=== PATIENT | female | born 1980 | race Caucasian/White ===

== ENCOUNTER → 2020-12-13 | Outpatient (CLI) | payer MEDICARE ==
[~2020-12-13] MED LIST: IOHEXOL 240 MG/ML 50ML VIAL. ONE; IOHEXOL 300 MG/ML 75 ML VIAL. IV ONE
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
--- NOTE | 2020-12-13 11:07 | RAD ---
INDICATION: Reason: RLQ PAIN. / Spl. Instructions: DRINKING AT 8A. NOT DIABETIC / History: . COMPARISON: None. TECHNIQUE: Axial CT images obtained through the abdomen and pelvis with contrast. One or more of the following individualized dose reduction techniques were utilized for this examinat ion: 1. Automated exposure control; 2. Adjustment of the mA and/or kV according to patient size; 3 . Use of iterative reconstruction technique. FINDINGS: Linear opacity at the right lung base could be from scarring or atelectasis. Prominent epicardial fat. Abdominal aorta is not aneurysmal. Scattered calcific atherosclerosis. Fat-containing anterior abdomi nal wall hernias with some adjacent haziness to the fat. Some of the mesenteric fat and vessels is se en extending into the hernia sac. Fatty atrophy of the musculature most severe at the partially visualized upper legs. There are some enlarged lymph nodes in the bilateral groin measuring up to 13 mm short axis. No intrahepatic bile ducts. Liver is low density which can be seen with fatty infiltration. No peripancreatic fluid collection. Spleen prominent in size. No hydronephrosis. Urinary bladder is partially distended. No periappendiceal inflammatory changes. There are some prominent vessels within the mesentery including adjacent to the right side of the col on. Prominent stool within the transverse colon. Degenerative changes of the hips and spine. Osseous excrescence off of the right acetabulum. Sclerotic appearance of the right iliac wing. IMPRESSION: * No periappendiceal inflammatory changes. No CT evidence of bowel obstruction. * Moderate stool within the transverse colon which appears mildly distended. * Multiple fat-containing anterior abdominal wall hernias with some of the mesenteric vessels extend ing into the hernia sac. There is some haziness to the fat which could be secondary to edema or infla mmatory changes. * Liver is low density which can be seen with fatty infiltration. * Nonspecific mildly enlarged groin lymph nodes. Electronically signed by: Felix Joshua MD (12/13/2020 11:05 AM) [id number]
== END ==
LOC: CT 07:50
PROVIDERS: ATTEND Family Medicine
DX: K46.9 Unspecified abdominal hernia without obstruction or gangrene (principal); R59.9 Enlarged lymph nodes, unspecified; R10.31 Right lower quadrant pain; R51.9 Headache, unspecified
CPT/HCPCS: 70450; 74177; Q9967

== ENCOUNTER 2020-12-14 23:15 | Emergency (ER) | payer MEDICARE ==
[~2020-12-14] VITALS: Ht 175.3 cm; Wt 68.2 kg
[2020-12-14 23:35] VITALS: BP 160/107
--- NOTE | 2020-12-14 23:50 | PHYS DOC ---
Adult General Chief Complaint Chief Complaint: VAGINAL PROBLEM HPI HPI Patient is a 40 year old female who presents with vaginal tear that occurred today. She denies any trauma. She denies use of any foreign body. She states that she noted blood at the superior aspect of the vaginal opening on the right side. She is not any blood thinners. She was concerned as she noted bleeding after wiping following urination. Patient denies any fever, chills, nausea or vomiting. She has not taken any analgesics for this. She came to the ER for evaluation. Review of Systems Review of Systems Constitutional: Denies fever or chills [] Eyes: Denies change in visual acuity, redness, or eye pain [] HENT: Denies nasal congestion or sore throat [] Respiratory: Denies cough or shortness of breath [] Cardiovascular: No additional information not addressed in HPI [] GI: Denies abdominal pain, nausea, vomiting, bloody stools or diarrhea [] : Denies dysuria or hematuria. Reports vaginal tear Musculoskeletal: Denies back pain or joint pain [] Integument: Denies rash or skin lesions [] Neurologic: Denies headache, focal weakness or sensory changes [] Endocrine: Denies polyuria or polydipsia [] All other systems were reviewed and found to be within normal limits, except as documented in this note. Allergies Allergies Allergies Coded Allergies Type Severity Reaction Last Updated Verified Penicillins Allergy Unknown 12/13/20 Yes Physical Exam Physical Exam Constitutional: Well developed, well nourished, no acute distress, non-toxic appearance. [] HENT: Normocephalic, atraumatic, bilateral external ears normal, oropharynx moist, no oral exudates, nose normal. [] Eyes: PERRLA, EOMI, conjunctiva normal, no discharge. [] Neck: Normal range of motion, no tenderness, supple, no stridor. [] Cardiovascular:Heart rate regular rhythm, no murmur [] Lungs & Thorax: Bilateral breath sounds clear to auscultation [] Abdomen: Bowel sounds normal, soft, no tenderness, no masses, no pulsatile masses. Genitourinary: Patient has superficial abrasion right superior aspect of the introitus. 1.5 cm length. Minimal clotted dark blood noted. No other laceration appreciated. [] Skin: Warm, dry, no erythema, no rash. [] Back: No tenderness, no CVA tenderness. [] Extremities: No tenderness, no cyanosis, no clubbing, ROM intact, no edema. [] Neurologic: Alert and oriented X 3, normal motor function, normal sensory function, no focal deficits noted. [] Psychologic: Affect normal, judgement normal, mood normal. [] EKG EKG [] Radiology/Procedures Radiology/Procedures [] Heart Score C/O Chest Pain: No Risk Factors: Risk Factors: DM, Current or recent (<one month) smoker, HTN, HLP, family history of CAD, obesity. Risk Scores: Risk Factors: DM, Current or recent (<one month) smoker, HTN, HLP, family history of CAD, obesity. Course & Med Decision Making Course & Med Decision Making Patient vaginal exam revealed normal mons pubis and normal labia majora and normal labia minora. However at the opening of the introitus right superior aspect, she has a superficial abrasion measuring 1.5 cm at length and 0.25 cm depth. Minimal clotted blood noted. No other active site of bleeding noted. No other abrasion, contusion or abnormality appreciated. This was approximated with Dermabond. Hemostasis obtained prior to arrival to the ER. Dragon Disclaimer Dragon Disclaimer This electronic medical record was generated, in whole or in part, using a voice recognition dictation system. Departure Departure: Impression: Primary Impression: Tear of vaginal muscle Disposition: HOME / SELF CARE / HOMELESS Condition: GOOD Referrals: JAYSHREE SCRUGGS MD (PCP) Additional Instructions: Please keep the vaginal area clean and dry. Be extra careful when you wipe vaginal area after urination. May take ibuprofen or Motrin as needed for pain. You have received Dermabond to the vaginal tear area. Bleeding has stopped. Try to elevate your bottom above 1 or 2 pillows when in bed. MACHELLE FRANKLIN MD Dec 14, 2020 23:50
== END 2020-12-15 00:05 | disposition home or self-care (01) ==
LOC: ER 23:15
DX: S31.41XA Laceration without foreign body of vagina and vulva, initial encounter (principal); Z88.0 Allergy status to penicillin; X58.XXXA Exposure to other specified factors, initial encounter; Y93.9 Activity, unspecified; Y92.89 Other specified places as the place of occurrence of the external cause; Y99.8 Other external cause status
CPT/HCPCS: 57200; 99282; 99284